=== PATIENT | male | born 1975 | race American Indian/Alaskan Native ===

== ENCOUNTER 2016-12-04 15:35 | Emergency (ER) | payer OTHER ==
[2016-12-04] MEDS ORDERED: MOTRIN PO ONE (19:56)
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
[2016-12-04 21:58] VITALS: BP 130/68
== END 2016-12-04 21:59 | disposition home or self-care (01) ==
LOC: ED 15:35
DX: S86.812A Strain of other muscle(s) and tendon(s) at lower leg level, left leg, initial encounter (principal); S13.4XXA Sprain of ligaments of cervical spine, initial encounter; S86.811A Strain of other muscle(s) and tendon(s) at lower leg level, right leg, initial encounter; C34.90 Malignant neoplasm of unspecified part of unspecified bronchus or lung; F17.200 Nicotine dependence, unspecified, uncomplicated; V43.52XA Car driver injured in collision with other type car in traffic accident, initial encounter; Y93.89 Activity, other specified; Y99.8 Other external cause status; Y92.488 Other paved roadways as the place of occurrence of the external cause

== ENCOUNTER 2019-10-17 13:12 | Emergency (ER) | payer SELFPAY ==
[2019-10-17] MEDS ORDERED: ONDANSETRON 4 MG/2 ML INJ IV ONE (14:32)
[2019-10-17] MEDS ORDERED: SODIUM CHLORIDE 0.9% 1000 ML 1,000 ML IV ONE (14:32)
[2019-10-17] MEDS ORDERED: KETOROLAC 30 MG/1 ML INJ IV ONE (14:32)
--- NOTE | 2019-10-17 14:41 | Emergency Department Report ---
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 Patient had no recent travel or contact with any known persons with coronavirus. Patient has a cough which is productive of clear sputum as well as body aches. Is some mild nausea. Patient states the body aches are 8 out of 10 in severity worse with movement better with rest. Patient's had some subjective fevers and chills. He denies sore throat neck stiffness diarrhea or vomiting. - Related Data Previous Rx's Medication Instructions Recorded Last Taken Type HYDROcodone/APAP 5-325 [[place] 1 each PO Q6HR PRN #20 tablet 05/16/15 Unknown Rx 5/325] Ibuprofen [Motrin] 600 mg PO Q8H PRN #50 tablet 05/16/15 Unknown Rx Metaxalone [Skelaxin] 800 mg PO TID #30 tablet 05/16/15 Unknown Rx Cyclobenzaprine [Flexeril] 10 mg PO TID PRN 5 Days tablet 12/04/16 Unknown Rx Ibuprofen [Motrin 600 MG tab] 600 mg PO Q8H PRN 7 Days tablet 12/04/16 Unknown Rx Albuterol INH(or & Nicu Only) 2 puff IH QID PRN #1 inhalation 10/17/19 Unknown Rx [ProAir HFA Inhaler] Azithromycin [Zithromax Z-JESSA] 250 mg PO DAILY #6 tablet 10/17/19 Unknown Rx HYDROcodone/APAP 5-325 [[place] 1 each PO Q6HR PRN #14 tablet 10/17/19 Unknown Rx 5/325] Allergies Allergy/AdvReac Type Severity Reaction Status Date / Time No Known Allergies Allergy Verified 10/17/19 13:29 ED Review of Systems ROS: Stated complaint: BODY ACHES Other details as noted in HPI Comment: All other systems reviewed and negative ED Past Medical Hx - Past Medical History Previous Medical History?: Yes Hx Asthma: Yes Additional medical history: "Low b/p problems" - Surgical History Past Surgical History?: Yes Additional Surgical History: LEFT PNEUMONECTOMY - Social History Smoking Status: Never Smoker Substance Use Type: None - Medications Home Medications: Home Medications Medication Instructions Recorded Confirmed Last Taken Type HYDROcodone/APAP 5-325 [[place] 1 each PO Q6HR PRN #20 tablet 05/16/15 Unknown Rx 5/325] Ibuprofen [Motrin] 600 mg PO Q8H PRN #50 tablet 05/16/15 Unknown Rx Metaxalone [Skelaxin] 800 mg PO TID #30 tablet 05/16/15 Unknown Rx Cyclobenzaprine [Flexeril] 10 mg PO TID PRN 5 Days tablet 12/04/16 Unknown Rx Ibuprofen [Motrin 600 MG tab] 600 mg PO Q8H PRN 7 Days tablet 12/04/16 Unknown Rx Albuterol INH(or & Nicu Only) 2 puff IH QID PRN #1 inhalation 10/17/19 Unknown Rx [ProAir HFA Inhaler] Azithromycin [Zithromax Z-JESSA] 250 mg PO DAILY #6 tablet 10/17/19 Unknown Rx HYDROcodone/APAP 5-325 [[place] 1 each PO Q6HR PRN #14 tablet 10/17/19 Unknown Rx 5/325] ED Physical Exam - General Limitations: No Limitations General appearance: alert, in distress (secondary to body aches) - Head Head exam: Present: atraumatic, normocephalic - Eye Eye exam: Present: normal appearance - ENT ENT exam: Present: mucous membranes moist - Neck Neck exam: Present: normal inspection - Respiratory Respiratory exam: Present: normal lung sounds bilaterally. Absent: respiratory distress, wheezes, rales, rhonchi - Cardiovascular Cardiovascular Exam: Present: regular rate, normal rhythm, normal heart sounds. Absent: systolic murmur, diastolic murmur, rubs, gallop - GI/Abdominal GI/Abdominal exam: Present: soft, normal bowel sounds. Absent: distended, tenderness, guarding, rebound - Rectal Rectal exam: Present: deferred - Extremities Exam Extremities exam: Present: normal inspection - Back Exam Back exam: Present: normal inspection - Neurological Exam Neurological exam: Present: alert, oriented X3 - Psychiatric Psychiatric exam: Present: normal affect, normal mood - Skin Skin exam: Present: warm, dry, intact, normal color. Absent: rash ED Course Vital Signs 10/17/19 10/17/19 13:29 17:34 Temperature 99 F Pulse Rate 74 84 Respiratory 16 16 Rate Blood Pressure 99/48 Blood Pressure 121/63 [Left] O2 Sat by Pulse 100 96 Oximetry - Reevaluation(s) Reevaluation #1: 10/17/19 14:53 Given the recent coronavirus pandemic the patient was given a surgical mask. D uring my interventions with the patient had a gown goggles N 95 with cover with a surgical mask was used. I was also double gloved ED Medical Decision Making - Lab Data Result diagrams: 10/17/19 15:49 10/17/19 15:49 - Radiology Data [facility] [address] [place] [address] XRay Report Signed Patient: ANNALISA SCHWARTZ MR#: [id number] : 1975 Acct:[id number] Age/Sex: 44 / M ADM Date: 10/17/19 Loc: ED Attending Dr: Ordering Physician: BARON ROSALES MD Date of Service: 10/17/19 Procedure(s): XR chest 1V ap Accession Number(s): [id number] cc: BARON ROSALES MD Fluoro Time In Minutes: CHEST 1 VIEW INDICATION / CLINICAL INFORMATION: productive cough. COMPARISON: None available. FINDINGS: SUPPORT DEVICES: None. HEART / MEDIASTINUM: No significant abnormality. LUNGS / PLEURA: Several surgical clips seen in the left perihilar region. There is a small to moderate left pleural effusion with adjacent atelectasis versus consolidation. No focal pulmonary consolidation in the right lung. No pneumothorax. ADDITIONAL FINDINGS: No significant additional findings. IMPRESSION: 1. Surgical clips in the left hilar region. Small to moderate left pleural effusion with adjacent atelectasis or consolidation. Signer Name: Corin Awad MD Signed: 10/17/2019 4:08 PM Workstation Name: [id number] Transcribed By: [facility] Dictated By: Corin Awad MD Electronically Authenticated By: Corin Awad MD Signed Date/Time: 10/17/19 1608 - Medical Decision Making Patient is a 44-year-old high [place] male who is complaining of body aches and cough. Patient does have a history of lobectomy secondary to lung cancer. Patient even when sleep was satting 96%. Blood pressure is adequate. Patient does not appear to be in respiratory distress at this time. Patient is chest x- ray despite the surgical changes is unremarkable. Patient likely has an acute bronchitis/flulike illness. Because of the recent coronavirus pandemic the patient also has this in his differential. Patient information has been placed into the person of under interest database. Patient be discharged home with a prescription for azithromycin and medication for symptomatic relief. Patient is to return if he becomes acutely short of breath with wheezing. Patient is stable for discharge at this time however. Critical care attestation.: If time is entered above; I have spent that time in minutes in the direct care of this critically ill patient, excluding procedure time. ED Disposition Clinical Impression: Flu-like symptoms, Suspected COVID-19 virus infection, Acute bronchitis Disposition: DC- TO HOME OR SELFCARE Is pt being admited?: No Does the pt Need Aspirin: No Condition: Stable Instructions: COVID-19, Acute Bronchitis (ED) Additional Instructions: Please self quarantine yourself for the next 14 days. Please return to the emergency department if you become acutely short of breath. Prescriptions: HYDROcodone/APAP 5-325 [[place] 5/325] 1 each PO Q6HR PRN #14 tablet PRN Reason: Pain Albuterol INH(or & Nicu Only) [ProAir HFA Inhaler] 2 puff IH QID PRN #1 inhalation PRN Reason: Shortness Of Breath Azithromycin [Zithromax Z-JESSA] 250 mg PO DAILY #6 tablet Referrals: PRIMARY CARE, [Primary Care Provider] - 3-5 Days Time of Disposition: 17:31
--- NOTE | 2019-10-17 16:13 | XRay Report ---
CHEST 1 VIEW INDICATION / CLINICAL INFORMATION: productive cough. COMPARISON: None available. FINDINGS: SUPPORT DEVICES: None. HEART / MEDIASTINUM: No significant abnormality. LUNGS / PLEURA: Several surgical clips seen in the left perihilar region. There is a small to moderat e left pleural effusion with adjacent atelectasis versus consolidation. No focal pulmonary consolidat ion in the right lung. No pneumothorax. ADDITIONAL FINDINGS: No significant additional findings. IMPRESSION: 1. Surgical clips in the left hilar region. Small to moderate left pleural effusion with adjacent ate lectasis or consolidation. Signer Name: Corin Awad MD Signed: 10/17/2019 4:08 PM Workstation Name: [id number]
[2019-10-17 16:32] LABS: Monocytes # (Auto) 1.3 K/mm3 (0.0-0.8); Monocytes % (Auto) 15.5 % (0.0-7.3)
[2019-10-17 16:47] LABS: Basophils % (Auto) 0.4 % (0.0-1.8); Hematocrit 42.1 % (35.5-45.6); Lymphocytes # (Auto) 1.5 K/mm3 (1.2-5.4); Lymphocytes % (Auto) 18.7 % (13.4-35.0); Mean Corpuscular HGB Conc 36 % (32-34); Mean Corpuscular Volume 83 fl (84-94); Platelet Count 95 K/mm3 (140-440); Red Cell Distribution Width 13.9 % (13.2-15.2)
[2019-10-17 17:08] LABS: BUN/Creatinine Ratio 13; Blood Urea Nitrogen 14 mg/dL (9-20); Calcium 8.4 mg/dL (8.4-10.2); Hemolysis Index 1
[2019-10-17 17:44] VITALS: BP 121/63
== END 2019-10-17 18:27 | disposition home or self-care (01) ==
LOC: ED 13:12
DX: J20.9 Acute bronchitis, unspecified (principal); J45.909 Unspecified asthma, uncomplicated; Z20.828 Contact with and (suspected) exposure to other viral communicable diseases; Z98.890 Other specified postprocedural states; Z79.1 Long term (current) use of non-steroidal anti-inflammatories (NSAID); Z79.2 Long term (current) use of antibiotics; Z79.899 Other long term (current) drug therapy
CPT/HCPCS: 36415; 71045; 80048; 82728; 84145; 85025; 86140; 87400; 93005; 93010; 96374; 96375; 99284; J1885; J2405; J7030

== ENCOUNTER 2022-04-14 13:13 | Emergency (ER) | payer OTHER ==
--- NOTE | 2022-04-14 16:49 | Event Note ---
ED Screening Note Date of service: 04/14/22 Time: 16:48 ED Screening Note: Report hematuria and penile swelling for 3-4 days. C/.O back pain and report inquinal hernia pain This initial assessment/diagnostic orders/clinical plan/treatment(s) is/are subject to change based on patients health status, clinical progression and re- assessment by fellow clinical providers in the ED. Further treatment and workup at subsequent clinical providers discretion. Patient/guardian urged not to elope from the ED as their condition may be serious if not clinically assessed and managed. Initial orders include: Active Orders 24 hr Category Date Time Status CT abdomen pelvis wo con Stat Cat Scan 04/14/22 16:09 Ordered CMP [Comprehensive Metabolic Panel] Stat Lab 04/14/22 16:08 Ordered Complete Blood Count Auto Diff Stat Lab 04/14/22 16:08 Ordered Urinalysis Complete Stat Lab 04/14/22 16:07 Ordered
--- NOTE | 2022-04-14 17:08 | Cat Scan Report ---
CT ABDOMEN AND PELVIS WITHOUT CONTRAST HISTORY: bilateral flank pain. COMPARISON: None. TECHNIQUE: CT images of the abdomen and pelvis were obtained without administration of intravenous co ntrast. All CT scans at this location are performed using CT dose reduction for ALARA by means of au tomated exposure control. FINDINGS: Lungs/bones: Lung bases are clear. No acute osseous abnormality. Abdomen/pelvis: No radiopaque urinary stone disease. No renal mass, cyst, or hydronephrosis. The liver, gallbladder, spleen, pancreas, adrenals, and proximal GI tract appear unremarkable. Urinary bladder and prostate appear unremarkable with no pelvic free fluid. No acute colonic abnormal ity identified. Appendix is normal in size measuring 6 mm. IMPRESSION: 1. No acute abnormality. Signer Name: Mohit Mcfarlane MD Signed: 04/14/2022 5:05 PM Workstation Name: [id number]
[2022-04-14 17:17] LABS: Basophils # (Auto) 0.1 K/mm3 (0.0-0.1); Basophils % (Auto) 0.6 % (0.0-1.8); Eosinophils # (Auto) 0.1 K/mm3 (0.0-0.4); Eosinophils % (Auto) 0.7 % (0.0-4.3); Lymphocytes # (Auto) 2.4 K/mm3 (1.2-5.4); Lymphocytes % (Auto) 25.9 % (13.4-35.0); Mean Corpuscular HGB Conc 36 % (32-34); Mean Corpuscular Volume 85 fl (84-94); Monocytes # (Auto) 1.2 K/mm3 (0.0-0.8); Monocytes % (Auto) 12.8 % (0.0-7.3); Platelet Count 131 K/mm3 (140-440); Red Blood Count 5.06 M/mm3 (3.65-5.03)
[2022-04-14 17:19] LABS: Hematocrit 42.8 % (35.5-45.6); Hemoglobin 15.4 gm/dl (11.8-15.2)
[2022-04-14 17:39] LABS: Alanine Aminotransferase 18 units/L (7-56); Albumin 4.7 g/dL (3.9-5); BUN/Creatinine Ratio 9; Blood Urea Nitrogen 10 mg/dL (9-20); Calcium 9.2 mg/dL (8.4-10.2); Hemolysis Index 5
[2022-04-14] MEDS ORDERED: ONDANSETRON 4 MG ODT TAB PO ONE (22:13)
[2022-04-14] MEDS ORDERED: HYDROcodone/ACETAMINOPHEN 10-325MG TAB PO ONE (22:13)
[2022-04-14] MEDS ORDERED: LIDOCAINE-MPF (1%) 10 MG/1 ML VIAL 5 ML INFILTRATI ONE (22:13)
[2022-04-14] MEDS ORDERED: IBUPROFEN 800 MG TAB PO ONE (22:13)
[2022-04-14] MEDS ORDERED: AZITHROMYCIN 250 MG TAB PO ONE (22:13)
[2022-04-14] MEDS ORDERED: LIDOCAINE (4%) 40 MG/ML TOPICAL SOLN 50 ML BOTTLE TP ONE (22:13)
[2022-04-14 22:30] LABS: Bilirubin,Urine NEG (Negative); Blood,Urine MOD (Negative); Color,Urine Yellow (Yellow); Urobilinogen,Urine < 2 mg/dL (<2.0)
[2022-04-14 22:32] LABS: Mucus,Urine FEW /HPF
--- NOTE | 2022-04-14 23:28 | Emergency Department Report ---
ED Male HPI - General Chief complaint: Urogenital-Male Stated complaint: BLOOD IN URINE/SWOLLEN Time Seen by Provider: 04/14/22 20:15 Source: patient Mode of arrival: Ambulatory Limitations: No Limitations - History of Present Illness Initial comments: 46-year-old male presenting with penile pain. Patient describes hematuria, penile swelling x3 to 4 days, describes pain is getting worse. Symptoms associated with abdominal pain, back pain, urinary frequency, urgency, he denies testicular pain, no testicular swelling, he does report sexually active with female partners without use of protection. - Related Data Previous Rx's Medication Instructions Recorded Last Taken Type HYDROcodone/APAP 5-325 [[place] 1 each PO Q6HR PRN #20 tablet 05/16/15 Unknown Rx 5/325] Ibuprofen [Motrin] 600 mg PO Q8H PRN #50 tablet 05/16/15 Unknown Rx Metaxalone [Skelaxin] 800 mg PO TID #30 tablet 05/16/15 Unknown Rx Cyclobenzaprine [Flexeril] 10 mg PO TID PRN 5 Days tablet 12/04/16 Unknown Rx Ibuprofen [Motrin 600 MG tab] 600 mg PO Q8H PRN 7 Days tablet 12/04/16 Unknown Rx Albuterol Mdi (or & Nicu Only) 2 puff IH QID PRN #1 inhalation 10/17/19 Unknown Rx [ProAir HFA Inhaler] Azithromycin [Zithromax Z-JESSA] 250 mg PO DAILY #6 tablet 10/17/19 Unknown Rx HYDROcodone/APAP 5-325 [[place] 1 each PO Q6HR PRN #14 tablet 10/17/19 Unknown Rx 5/325] Doxycycline Hyclate [Doxycycline 100 mg PO Q12HR #14 tab 04/15/22 Unknown Rx Hyclate TAB] Ibuprofen [Motrin 800 MG tab] 800 mg PO Q8HR PRN #20 tablet 04/15/22 Unknown Rx Triamcinolone 0.5% [Kenalog 0.5% 1 applic TP TID #1 tube 04/15/22 Unknown Rx CREAM] Allergies Allergy/AdvReac Type Severity Reaction Status Date / Time No Known Allergies Allergy Verified 10/17/19 13:29 ED Review of Systems ROS: Stated complaint: BLOOD IN URINE/SWOLLEN Other details as noted in HPI Constitutional: denies: chills, fever Eyes: as per HPI ENT: as per HPI Respiratory: denies: cough Cardiovascular: denies: chest pain Gastrointestinal: abdominal pain. denies: nausea, vomiting, diarrhea Genitourinary: urgency, dysuria, frequency, hematuria. denies: testicular pain, testicular mass Musculoskeletal: back pain Skin: denies: rash Neurological: denies: headache Hematological/Lymphatic: denies: easy bleeding ED Past Medical Hx - Past Medical History Previous Medical History?: Yes Hx Asthma: Yes Additional medical history: "Low b/p problems" - Surgical History Past Surgical History?: Yes Additional Surgical History: LEFT PNEUMONECTOMY - Social History Smoking Status: Never Smoker Substance Use Type: None - Medications Home Medications: Home Medications Medication Instructions Recorded Confirmed Last Taken Type HYDROcodone/APAP 5-325 [[place] 1 each PO Q6HR PRN #20 tablet 05/16/15 Unknown Rx 5/325] Ibuprofen [Motrin] 600 mg PO Q8H PRN #50 tablet 05/16/15 Unknown Rx Metaxalone [Skelaxin] 800 mg PO TID #30 tablet 05/16/15 Unknown Rx Cyclobenzaprine [Flexeril] 10 mg PO TID PRN 5 Days tablet 12/04/16 Unknown Rx Ibuprofen [Motrin 600 MG tab] 600 mg PO Q8H PRN 7 Days tablet 12/04/16 Unknown Rx Albuterol Mdi (or & Nicu Only) 2 puff IH QID PRN #1 inhalation 10/17/19 Unknown Rx [ProAir HFA Inhaler] Azithromycin [Zithromax Z-JESSA] 250 mg PO DAILY #6 tablet 10/17/19 Unknown Rx HYDROcodone/APAP 5-325 [[place] 1 each PO Q6HR PRN #14 tablet 10/17/19 Unknown Rx 5/325] Doxycycline Hyclate [Doxycycline 100 mg PO Q12HR #14 tab 04/15/22 Unknown Rx Hyclate TAB] Ibuprofen [Motrin 800 MG tab] 800 mg PO Q8HR PRN #20 tablet 04/15/22 Unknown Rx Triamcinolone 0.5% [Kenalog 0.5% 1 applic TP TID #1 tube 04/15/22 Unknown Rx CREAM] ED Physical Exam - General Limitations: No Limitations General appearance: alert, in no apparent distress - Head Head exam: Present: atraumatic - Eye Eye exam: Present: normal appearance Pupils: Present: normal accommodation - ENT ENT exam: Present: normal exam, normal orophraynx - Neck Neck exam: Present: normal inspection - Respiratory Respiratory exam: Present: normal lung sounds bilaterally. Absent: respiratory distress - Cardiovascular Cardiovascular Exam: Present: regular rate - GI/Abdominal GI/Abdominal exam: Present: soft. Absent: distended - exam: Present: urethral discharge, circumcision (There is penile swelling, tender on palpation, no testicular tenderness or swelling, no erythema), other (There is no rash or lesions noted on the penicillin test). Absent: testicular tenderness, scrotal swelling - Extremities Exam Extremities exam: Present: normal inspection, full ROM - Back Exam Back exam: Present: normal inspection, full ROM. Absent: CVA tenderness (R), CVA tenderness (L) - Neurological Exam Neurological exam: Present: alert, oriented X3, CN II-XII intact, normal gait - Psychiatric Psychiatric exam: Present: normal affect, normal mood - Skin Skin exam: Present: warm, dry, intact, normal color ED Course Vital Signs 04/14/22 16:09 Temperature 98.8 F Pulse Rate 76 Respiratory 22 Rate Blood Pressure 147/90 [Right] O2 Sat by Pulse 100 Oximetry - Reevaluation(s) Reevaluation #1: 04/14/22 23:28 Patient reports marked improvement of his symptoms however still no urinalysis. Awaiting with ED Medical Decision Making - Lab Data Result diagrams: 04/14/22 16:55 04/14/22 16:55 - Radiology Data 58-year-old female with multiple medical history including rheumatoid arthritis, DVT presenting to the emergency department with pain. Patient describes sharp pain all over her joints, reports she sees a hide sorter for the past 1 year and she has been on Remicade infusion but her "arthritis does not seem to be controlled, states She is pain is getting worse, especially every time she gets an infusion". She states she did get her last infusion on , reports she has an appointment with her hide sorter on Saturday to discuss further treatment options. She is currently taking Tylenol 3 without improvement, she denies fever, chills, no recent illness or infection, no chest pain, no shortness of breath, no nausea vomiting abdominal pain, no weakness dizziness or vision changes - Medical Decision Making Penile pain, hematuria, frequency urgency x4 days. CT of his abdomen pelvis did not show any acute infectious process, his CBC is reassuring, his BUN/creatinine is all within normal limits, Urinalysis notable for large amount of RBCs, WBCs, yeast, coupled with his symptoms, treated patient with ceftriaxone, azithromycin, Rx for doxycycline, topical nystatin, ibuprofen for pain, and urology referral. I also encourage patient to avoid sexual intercourse, finish all his antibiotics, follow-up with the urologist/health department for further STI testing, and treatment. Patient reports significant improvement of his symptoms, he is much comfortable and able to ambulate more freely Patient remained stable nontoxic-appearing, afebrile, ambulating steadily without assistance. Gone over ED findings with patient as well as plan for follow-up. Also discussed return precautions with patient, all questions and concerns addressed. Patient is stable to be discharged follow-up outpatient. Audio voice dictation device used, hence the chart might contain some dictation errors, mispronunciations, wrong spelling and wrong verbiage. Critical care attestation.: If time is entered above; I have spent that time in minutes in the direct care of this critically ill patient, excluding procedure time. ED Disposition Clinical Impression: Hematuria, Penile swelling, Urethritis, Dysuria Disposition: 01 HOME / SELF CARE / HOMELESS Is pt being admited?: No Does the pt Need Aspirin: No Condition: Stable Instructions: Urethritis, Adult Prescriptions: Doxycycline Hyclate [Doxycycline Hyclate TAB] 100 mg PO Q12HR #14 tab Triamcinolone 0.5% [Kenalog 0.5% CREAM] 1 applic TP TID #1 tube Ibuprofen [Motrin 800 MG tab] 800 mg PO Q8HR PRN #20 tablet PRN Reason: Pain , Severe (7-10) Referrals: DULCE CASAREZ MD [Primary Care Provider] - 3-5 Days MÓNICA VELASQUEZ MD [Staff Physician] - 3-5 Days Forms: STI Treatment and Prevention
[2022-04-15] MEDS ORDERED: LIDOCAINE VISCOUS 2% 15 ML ORAL LIQD PO ONE (00:59)
[2022-04-15 01:31] VITALS: BP 142/88
== END 2022-04-15 01:32 | disposition home or self-care (01) ==
LOC: ED 13:13
DX: R31.9 Hematuria, unspecified (principal); R30.0 Dysuria; N34.2 Other urethritis; N50.89 Other specified disorders of the male genital organs; J45.909 Unspecified asthma, uncomplicated
CPT/HCPCS: 36415; 74176; 80053; 81001; 85025; 87086; 96372; 99284; J0696; J3490; Q0162